=== PATIENT | female | born 1950 | race Caucasian/White ===

== ENCOUNTER 2024-06-01 06:32 | Day surgery (SDC) | payer MEDICARE, BC ==
[2024-05-25 13:37] LABS: ALBUMIN 3.3 G/DL (3.4-5.0); ALBUMIN/GLOBULIN RATIO 0.8 (1.1-1.5); ALKALINE PHOSPHATASE 85 IU/L (46-116); BLOOD UREA NITROGEN 14 MG/DL (7-18); BUN/CREATININE RATIO 15.4 (10.0-20.0); CALCIUM 9.1 MG/DL (8.5-10.1); CHLORIDE 106 MMOL/L (99-107); CREATININE 0.91 MG/DL (0.40-0.90); PRE OP ALT 25 U/L (30-65); PRE OP ANION GAP 7 (8-16); PRE OP AST 19 U/L (10-37); PRE OP BILIRUB, TOTAL 0.4 MG/DL (0.0-1.0); PRE OP GLUCOSE 117 MG/DL (70-104); PRE OP SODIUM 141 MMOL/L (135-145); TOTAL CARBON DIOXIDE 28.5 MMOL/L (24-32); TOTAL PROTEIN 7.3 G/DL (6.4-8.2); eGFR 61 ML/MIN
[2024-05-25 13:39] LABS: BASOPHILS # (AUTO) 0.1 X10'3 (0-0.2); EOSINOPHILS # (AUTO) 0.3 X10'3 (0-0.9); EOSINOPHILS % (AUTO) 5.5 % (0-6); LYMPHOCYTES % (AUTO) 32.8 % (21-51); MEAN CORPUSCULAR HGB CONC 33.4 g/dL (33.0-36.5); MEAN CORPUSCULAR VOLUME 98.8 FL (78-98); MEAN PLATELET VOLUME 7.3 FL (7.4-10.4); MONOCYTES # (AUTO) 0.7 X10'3 (0-0.9); MONOCYTES % (AUTO) 11.7 % (2-12); NEUTROPHILS # (AUTO) 2.9 X10'3 (1.8-7.7); PRE OP PLATELET COUNT 273 X10'3 (140-440); PRE OP WHITE BLOOD COUNT 6.1 10'3 (4.8-10.8); RED BLOOD COUNT 3.94 X10'6 (4.20-5.60); RED CELL DISTRIBUTION WIDTH 14.7 % (11.5-14.5)
[~2024-06-01] VITALS: Ht 162.6 cm; Wt 88.5 kg
[2024-06-01] VITALS (8 sets, daily range): BP systolic 116–153; BP diastolic 52–91; PULSE 70–99; RESP 14–21; TEMP 98.8; O2SAT 93–99
[~2024-06-01 06:32] MED LIST: APIX5TAB3 PO; CALCIUM; MAGNESIUM; VIT B12; VIT C; VIT D3; VIT K2; ZINC
[2024-06-01] MEDS: famotidine 20mg tablet PO ONE (06:57)
[2024-06-01] MEDS: ringers solution, lacted 1,000 ML IV SCH (06:57)
[2024-06-01] MEDS ORDERED: propofol inj 20 ML IV ONE (09:05)
[2024-06-01] MEDS ORDERED: ondansetron/PF 4mg/2ml inj ONE (09:05)
[2024-06-01] MEDS ORDERED: LIDOcaine 2% (20mg/ml) 5ml vial ONE (09:05)
[2024-06-01] MEDS ORDERED: rocuronium 10mg/ml inj IV ONE (09:05)
[2024-06-01] MEDS ORDERED: dexamethasone sod phosphate 4mg/ml inj. ONE (09:06)
[2024-06-01] MEDS ORDERED: glycopyrrolate 0.2mg/ml inj ONE (10:01)
[2024-06-01] MEDS ORDERED: neostigmine methylsulfate 1 MG/ML 10ml vial ONE (10:01)
== END 2024-06-01 11:52 | disposition home or self-care (01) ==
LOC: PAS 06:32
PROVIDERS: ATTEND Internal Medicine Critical Care Medicine
DX: R91.8 Other nonspecific abnormal finding of lung field (principal); C34.12 Malignant neoplasm of upper lobe, left bronchus or lung; C34.2 Malignant neoplasm of middle lobe, bronchus or lung; C77.9 Secondary and unspecified malignant neoplasm of lymph node, unspecified; Z79.899 Other long term (current) drug therapy; Z98.890 Other specified postprocedural states; Z88.6 Allergy status to analgesic agent; Z98.891 History of uterine scar from previous surgery; Z86.718 Personal history of other venous thrombosis and embolism; Z79.01 Long term (current) use of anticoagulants; Z90.710 Acquired absence of both cervix and uterus; Z90.49 Acquired absence of other specified parts of digestive tract; Z85.038 Personal history of other malignant neoplasm of large intestine; Z85.3 Personal history of malignant neoplasm of breast; Z83.3 Family history of diabetes mellitus; Z82.0 Family history of epilepsy and other diseases of the nervous system
CPT/HCPCS: 31627; 31628; 31629; 31653; 36415; 71250; 80053; 82948; 85025; 87015; 87070; 87116; 87206; 88341; 88342; 93005; 94760; A4618; J1100; J2003; J2405; J2704; J2710; J3490; J7120; Z7506; Z7508; Z7512; Z7610; 31622; 31624; 31625; 31626; 31654; 88173; 88305